=== PATIENT | male | born 1995 | race Caucasian/White ===

== ENCOUNTER 2020-02-03 01:19 | Emergency (ER) | payer SELFPAY ==
[2020-02-03 01:40] VITALS: BP 131/72; PULSE 71; TEMP 97.7; BMI 41.1
== END 2020-02-03 02:52 | disposition home or self-care (01) ==
LOC: JER 01:19
DX: R06.02 Shortness of breath (principal); Z11.59 Encounter for screening for other viral diseases
CPT/HCPCS: 71046-TC-FY; 93005; 93010; 99284-25; C9803; U0003

== ENCOUNTER 2020-02-24 18:34 | Emergency (ER) | payer BC ==
[2020-02-24 19:02] VITALS: BP 125/87; PULSE 74; TEMP 98.7; BMI 34.7
== END 2020-02-24 20:50 | disposition home or self-care (01) ==
LOC: JERFT 18:34
DX: M54.89 Other dorsalgia (principal); F41.9 Anxiety disorder, unspecified
CPT/HCPCS: 71046-TC-FY; 99283-25